=== PATIENT | female | born 1985 | race African-American/Black ===

== ENCOUNTER 2018-10-20 19:50 | Emergency (ER) | payer SELFPAY ==
[2018-10-20] MEDS ORDERED: TETRACAINE HCL 0.5% 2ML OPTH ONE (20:32)
[2018-10-20] MEDS ORDERED: FLUORESCEIN SODIUM 0.6 MG/WRAP ONE (20:32)
--- NOTE | 2018-10-20 20:51 | ER ---
Nurse's Notes [facility] Name: Bailee Berkowitz Age: 33 yrs Sex: Female : 1985 Arrival Date: 10/20/2018 Time: 19:54 Bed 24 Private MD: Tasha Hanks H Diagnosis: Injury of conjunctiva and corneal abrasion without foreign body Presentation: 10/20 20:21 Presenting complaint: Patient states: L eye irritation for past several days. Denies aa1 known injury. Reports she thought it may be her contact lenses and tried wearing her glasses for a few days but symptoms did not improve. Transition of care: patient was not received from another setting of care. Onset of symptoms was October 16, 2018. Risk Assessment: Do you want to hurt yourself or someone else? Patient reports no desire to harm self or others. Initial Sepsis Screen: Does the patient meet any 2 criteria? No. Patient's initial sepsis screen is negative. Does the patient have a suspected source of infection? No. Patient's initial sepsis screen is negative. Care prior to arrival: None. 20:21 Method Of Arrival: Ambulatory aa1 20:21 Acuity: ADAM 4 aa1 Triage Assessment: 20:22 General: Appears in no apparent distress. comfortable, Behavior is calm, cooperative, aa1 appropriate for age. Historical: - Allergies: 20:22 none; aa1 - Home Meds: 20:22 None [Active]; aa1 - PMHx: 20:22 None; aa1 - PSHx: 20:22 Appendectomy; aa1 - Immunization history:: Last tetanus immunization: unknown. - Social history:: Smoking status: Patient/guardian denies using tobacco. - Ebola Screening: : No symptoms or risks identified at this time. Screenin:30 Abuse screen: Denies threats or abuse. Nutritional screening: No deficits noted. la1 Nutritional screening: No deficits noted. Tuberculosis screening: No symptoms or risk factors identified. Fall Risk None identified. Assessment: 20:29 General: Appears in no apparent distress. Behavior is calm, cooperative. Pain: la1 Complains of pain in left eye. Neuro: Level of Consciousness is awake, alert, obeys commands, Oriented to person, place, time, situation. Cardiovascular: Heart tones S1 S2 present Capillary refill < 3 seconds. Respiratory: Airway is patent Respiratory effort is even, unlabored. GI: No signs and/or symptoms were reported involving the gastrointestinal system. : No signs and/or symptoms were reported regarding the genitourinary system. EENT: Sclera/Cornea are reddened in outer aspect of conjuctiva of left eye and inner aspect of conjunctiva of left eye. Derm: No signs and/or symptoms reported regarding the dermatologic system. Vital Signs: 20:22 BP 121 / 75; Pulse 91; Resp 16; Temp 98.9; Pulse Ox 98% on R/A; aa1 Visual Acuity: 20:29 Left Eye Visual acuity 20/30, Pupil size 4 mm, ; Right Eye Visual acuity 20/40, Pupil la1 size 4 mm, ; Both Eyes Visual acuity 20/30; With Lenses; ED Course: 19:54 Patient arrived in ED. es 19:55 Tasha Hanks DO is Private Physician. es 20:22 Triage completed. aa1 20:22 Arm band placed on right wrist. aa1 20:26 Payam Taylor PA is PHCP. jm 20:26 David Jovel MD is Attending Physician. jm 20:29 Shukri Stephen RN is Primary Nurse. la1 20:30 Call light in reach. la1 20:30 Patient did not have IV access during this emergency room visit. la1 20:50 Eddi Roberto MD is Referral Physician. jmm 20:51 Johny Roberto MD is Referral Physician. jm 20:51 Arely Perez MD is Referral Physician. [facility] 20:59 No provider procedures requiring assistance completed. la1 Administered Medications: 20:30 Drug: Tetracaine Drops 0.5 % 1 drops Route: Ophthalmic; Site: left eye; la1 Outcome: 20:51 Discharge ordered by . [facility] 20:59 Discharged to home ambulatory. la1 20:59 Condition: stable 20:59 Discharge instructions given to patient, Instructed on discharge instructions, follow up and referral plans. medication usage, Demonstrated understanding of instructions, follow-up care, medications, Prescriptions given X 1. 21:00 Patient left the ED. la1 Signatures: Anamika Moreno RN RN aa Payam Taylor PA PA [facility] Iqra Barba Attema, Shukri, RN RN la1
--- NOTE | 2018-10-20 20:52 | EDPHYS ---
Physician Documentation [facility] Name: Bailee Berkowitz Age: 33 yrs Sex: Female : 1985 Arrival Date: 10/20/2018 Time: 19:54 Bed 24 Private MD: Tasha Hanks H ED Physician David Jovel HPI: 10/20 20:55 This 33 yrs old Black Female presents to ER via Ambulatory with complaints of Eye jm Problem. 20:55 The patient is experiencing redness. Onset: The symptoms/episode began/occurred jmm gradually, 1 week(s) ago. Duration: the symptoms are intermittent. Aggravated by nothing. Alleviated by nothing. Associated signs and symptoms: Pertinent negatives: fever. This is a 33 year old female with no chronic medical conditions that presents to the ED with left eye redness beginning last week. Symptoms worsened this past Thursday. patient wears contact lenses. denies changes in vision. Historical: - Allergies: 20:22 none; aa1 - Home Meds: 20:22 None [Active]; aa1 - PMHx: 20:22 None; aa1 - PSHx: 20:22 Appendectomy; aa1 - Immunization history:: Last tetanus immunization: unknown. - Social history:: Smoking status: Patient/guardian denies using tobacco. - Ebola Screening: : No symptoms or risks identified at this time. ROS: 20:55 Constitutional: Negative for fever, chills, and weight loss. jmm 20:55 ENT: Negative for injury, pain, and discharge, Neck: Negative for injury, pain, and swelling, Cardiovascular: Negative for chest pain, palpitations, and edema, Respiratory: Negative for shortness of breath, cough, wheezing, and pleuritic chest pain. 20:55 Eyes: Positive for redness. 20:55 All other systems are negative. Exam: 20:55 Visual Acuity: I have reviewed the nursing documentation. jm 20:55 Constitutional: This is a well developed, well nourished patient who is awake, alert, and in no acute distress. Head/Face: atraumatic. 20:55 Chest/axilla: Normal chest wall appearance and motion. Cardiovascular: Regular rate and rhythm. No edema appreciated Respiratory: Normal respirations, no respiratory distress appreciated Skin: General appearance color normal MS/ Extremity: Moves all extremities, no obvious deformities appreciated, no edema noted to the lower extremities Neuro: Awake and alert, normal gait Psych: Behavior is normal, Mood is normal, Patient is cooperative and pleasant 20:55 Eyes: Extraocular movements: intact throughout, Conjunctiva: injected, in the left eye, Corneas: abrasion, on the left, at 7 o'clock, Sclera: abrasion, of the medial aspect of conjunctiva of left eye and lateral aspect of conjunctiva of left eye. Vital Signs: 20:22 BP 121 / 75; Pulse 91; Resp 16; Temp 98.9; Pulse Ox 98% on R/A; aa1 Visual Acuity: 20:29 Left Eye Visual acuity 20/30, Pupil size 4 mm, ; Right Eye Visual acuity 20/40, Pupil la1 size 4 mm, ; Both Eyes Visual acuity 20/30; With Lenses; MDM: 20:30 Patient medically screened. madhav 20:50 Data reviewed: vital signs, nurses notes. Counseling: I had a detailed discussion with [facility] the patient and/or guardian regarding: the historical points, exam findings, and any diagnostic results supporting the discharge/admit diagnosis, the need for outpatient follow up, to return to the emergency department if symptoms worsen or persist or if there are any questions or concerns that arise at home. 20:55 ED course: Patient is advised to discontinue use of contact lenses due to concerns for [facility] pseudomonal infection. Patient advised to follow up with ophthalmology for close evaluation. patient given strict return precautions. patient understood and agrees with the plan of care. . 10/20 20:26 Order name: Visual Acuity; Complete Time: 20:30 [facility] 10/20 20:26 Order name: Eye Tray; Complete Time: 20:30 [facility] 10/20 20:26 Order name: Fluoresene Opth strip; Complete Time: 20:30 [facility] Administered Medications: 20:30 Drug: Tetracaine Drops 0.5 % 1 drops Route: Ophthalmic; Site: left eye; la1 Disposition: 10/21 06:48 Co-signature as Attending Physician, David Jovel MD I agree with the assessment and [facility] plan of care. Disposition: 10/20/18 20:51 Discharged to Home. Impression: Injury of conjunctiva and corneal abrasion without foreign body. - Condition is Stable. - Discharge Instructions: Corneal Abrasion. - Prescriptions for Vigamox 0.5 % Ophthalmic Drops - instill 1 drop by OPHTHALMIC route every 8 hours for 7 days; 5 milliliter. - Medication Reconciliation Form, Thank You Letter, Antibiotic Education, Prescription Opioid Use form. - Follow up: Eddi Roberto MD; When: Tomorrow; Reason: Recheck today's complaints, Continuance of care, Re-evaluation by your physician. Follow up: Johny Roberto MD; When: As needed; Reason: Recheck today's complaints, Continuance of care, Re-evaluation by your physician. Follow up: Arely Perez MD; When: Tomorrow; Reason: Recheck today's complaints, Continuance of care, Re-evaluation by your physician. Signatures: Anamika Moreno RN RN aa1 David Jovel MD MD cha Mickail, Joel, PA PA [facility] Shukri Stephen RN RN la1 Corrections: (The following items were deleted from the chart) 10/20 21:00 20:51 10/20/2018 20:51 Discharged to Home. Impression: Injury of conjunctiva and la1 corneal abrasion without foreign body. Condition is Stable. Forms are Medication Reconciliation Form, Thank You Letter, Antibiotic Education, Prescription Opioid Use. Follow up: Eddi Roberto; When: Tomorrow; Reason: Recheck today's complaints, Continuance of care, Re-evaluation by your physician. Follow up: Johny Roberto; When: As needed; Reason: Recheck today's complaints, Continuance of care, Re-evaluation by your physician. Follow up: Arely Perez; When: Tomorrow; Reason: Recheck today's complaints, Continuance of care, Re-evaluation by your physician. lyric
[2018-10-20] MEDS ORDERED: GENTAMICIN 0.3% OPTH DROP 5ML ONE (21:03)
[2018-10-20 21:30] VITALS: BP 121/75; TEMP 98.9; O2SAT 98
== END 2018-10-20 21:00 | disposition home or self-care (01) ==
LOC: ER 19:50
DX: S05.02XA Injury of conjunctiva and corneal abrasion without foreign body, left eye, initial encounter (principal)
CPT/HCPCS: 99283

== ENCOUNTER 2018-12-06 12:23 | Emergency (ER) | payer SELFPAY ==
[2018-12-06] MEDS ORDERED: ACETAMINOPHEN 500 MG TAB ONE (13:57)
[2018-12-06] MEDS ORDERED: CLINDAMYCIN 900MG/D5W 900 MG/50 ML IVPB IV ONE (14:20)
[2018-12-06] MEDS ORDERED: DEXAMETHASONE 4 MG/ML VIAL ONE ×2 (14:20→14:23)
[2018-12-06] MEDS ORDERED: PEN G BENZ LA 1.2MU/2ML SYRINGE IM ONE (14:22)
[2018-12-06] MEDS ORDERED: NA CHLORIDE 0.9% 1,000 ML ONE (14:22)
--- NOTE | 2018-12-06 14:49 | ER ---
Nurse's Notes [facility] Name: Bailee Berkowitz Age: 33 yrs Sex: Female : 1985 Arrival Date: 12/06/2018 Time: 12:26 Bed 20 Private MD: Tasha Hanks H Diagnosis: Acute tonsillitis;Peritonsillar abscess-early;Fever, unspecified;Streptococcal tonsillitis Presentation: 12/06 13:02 Presenting complaint: Patient states: Sorethroat and swelling per pt, very painful sg reports having tonsils at this time, denies nausea/vomiting, reports having had the symptoms that developed around 1630 yesterday afternoon, no relief from OTC medications for pain and swelling. Transition of care: patient was not received from another setting of care. Onset of symptoms was December 06, 2018. Risk Assessment: Do you want to hurt yourself or someone else? Patient reports no desire to harm self or others. Initial Sepsis Screen: Does the patient meet any 2 criteria? No. Patient's initial sepsis screen is negative. Does the patient have a suspected source of infection? No. Patient's initial sepsis screen is negative. Care prior to arrival: None. 13:02 Method Of Arrival: Ambulatory sg 13:02 Acuity: ADAM 3 ch Triage Assessment: 14:41 General: Appears in no apparent distress. Behavior is calm, cooperative. tw2 VP COMPLIANCE: 13:04 LMP 11/30/2018 sg Historical: - Allergies: 13:05 none; sg - Home Meds: 13:05 None [Active]; sg - PMHx: 13:05 None; sg - PSHx: 13:05 Appendectomy; sg - Immunization history:: Adult Immunizations up to date. - Social history:: Smoking status: Patient/guardian denies using tobacco. - Ebola Screening: : Patient negative for fever greater than or equal to 101.5 degrees Fahrenheit, and additional compatible Ebola Virus Disease symptoms Patient denies exposure to infectious person Patient denies travel to an Ebola-affected area in the 21 days before illness onset No symptoms or risks identified at this time. - Family history:: not pertinent. Screenin:30 Abuse screen: Denies threats or abuse. Denies injuries from another. Nutritional ch screening: No deficits noted. Tuberculosis screening: No symptoms or risk factors identified. Fall Risk None identified. Assessment: 13:30 Pain: Complains of pain in mouth and throat Pain currently is 8 out of 10 on a pain ch scale. Pain began suddenly. Neuro: No deficits noted. Respiratory: Airway is patent Respiratory effort is even, unlabored, Breath sounds are clear bilaterally. GI: No signs and/or symptoms were reported involving the gastrointestinal system. EENT: Oral mucosa is moist. Throat is reddened has patchy exudate has enlarged tonsils bilaterally with gag reflex present. Derm: Skin is pink, warm \T\ dry. 13:44 Reassessment: Patient appears in no apparent distress at this time. Patient and/or ch family updated on plan of care and expected duration. Pain level reassessed. 14:41 Reassessment: Patient appears in no apparent distress at this time. Patient and/or tw2 family updated on plan of care and expected duration. Pain level reassessed. Patient is alert, oriented x 3, equal unlabored respirations, skin warm/dry/pink. 15:14 Reassessment: Patient appears in no apparent distress at this time. Patient and/or tw2 family updated on plan of care and expected duration. Pain level reassessed. Patient is alert, oriented x 3, equal unlabored respirations, skin warm/dry/pink. pt tolerated room temp water at this time. waiting for completion of IV fluids prior to discharge. 15:45 Reassessment: Patient appears in no apparent distress at this time. Patient and/or tw2 family updated on plan of care and expected duration. Pain level reassessed. Patient is alert, oriented x 3, equal unlabored respirations, skin warm/dry/pink. Vital Signs: 13:04 Pulse 104; Resp 18; Temp 99.1; Pulse Ox 100% on R/A; Weight 106.14 kg; Height 5 ft. 2 sg in. (157.48 cm); Pain 10/10; 13:04 BP 151 / 96; sg 13:44 BP 149 / 91; Pulse 122; Resp 22; Temp 101.9; Pulse Ox 99% on R/A; Pain 10/10; ch 14:39 BP 117 / 69; Pulse 101; Resp 19; Temp 99.7(O); Pulse Ox 100% on R/A; tw2 15:44 BP 131 / 76; Pulse 94; Resp 17; Pulse Ox 99% on R/A; tw2 13:04 Body Mass Index 42.80 (106.14 kg, 157.48 cm) ED Course: 12:26 Patient arrived in ED. sb2 12:27 Tasha Hanks DO is Private Physician. sb2 13:03 Triage completed. sg 13:04 Arm band placed on. sg 13:19 Abbie Sosa, RN is Primary Nurse. ch 13:30 Patient has correct armband on for positive identification. Bed in low position. Call light in reach. Side rails up X 1. 13:30 No provider procedures requiring assistance completed. ch 13:36 David Jovel MD is Attending Physician. madhav 13:58 Primary Nurse role handed off by Abbie Sosa RN tw2 13:58 Hue Perkins RN is Primary Nurse. tw2 14:10 Initial lab(s) drawn, by ok, sent to lab. Inserted saline lock: 22 gauge in left ms antecubital area, using aseptic technique. Blood collected. 14:47 Tasha Hanks DO is Referral Physician. madhav 14:47 Meera Peralta MD is Referral Physician. madhav 14:51 Awaiting: completion of IV fluids prior to discharge. tw2 15:45 IV discontinued, intact, bleeding controlled, No redness/swelling at site. Pressure tw2 dressing applied. Administered Medications: 13:45 Drug: Tylenol 1000 mg Route: PO; 15:15 Follow up: Response: No adverse reaction; Temperature is decreased tw2 14:25 Drug: Bicillin L-A 1.2 million units Route: IM; Site: right gluteus; tw2 14:50 Follow up: Response: No adverse reaction tw2 14:32 Drug: NS 0.9% 1000 ml Route: IV; Rate: 1 bolus; Site: left antecubital; tw2 15:44 Follow up: Response: No adverse reaction; IV Status: Completed infusion; IV Intake: tw2 1000ml 14:32 Drug: Decadron - Dexamethasone 10 mg Route: IVP; Site: left antecubital; tw2 15:15 Follow up: Response: No adverse reaction tw2 14:32 Drug: Clindamycin 900 mg Route: IVPB; Infused Over: 30 mins; Site: left antecubital; tw2 14:53 Follow up: Response: No adverse reaction; IV Status: Completed infusion tw2 Intake: 15:44 IV: 1000ml; Total: 1000ml. tw2 Outcome: 14:47 Discharge ordered by . madhav 15:45 Discharged to home ambulatory, with family. tw2 15:45 Condition: stable 15:45 Discharge instructions given to patient, family, Instructed on discharge instructions, follow up and referral plans. medication usage, Demonstrated understanding of instructions, follow-up care, medications, Prescriptions given X 1. 15:45 Patient left the ED. tw2 Signatures: Abbie Sosa, RN LEONARD Harry Zhou RN David Flor MD MD cha Solis, Maria ms Hue Perkins RN RN tw2 Dorothy Newman sb2 Corrections: (The following items were deleted from the chart) 13:46 13:02 Acuity: ADAM 4 [facility]
--- NOTE | 2018-12-06 14:49 | EDPHYS ---
Physician Documentation [facility] Name: Bailee Berkowitz Age: 33 yrs Sex: Female : 1985 Arrival Date: 12/06/2018 Time: 12:26 Bed 20 Private MD: Tasha Hanks H ED Physician David Jovel HPI: 12/06 14:02 This 33 yrs old Black Female presents to ER via Ambulatory with complaints of Sore mahdav Throat - SWELLING. 14:02 The patient presents with sore throat. The patient describes throat pain as burning, madhav constant. Onset: The symptoms/episode began/occurred 1 day(s) ago. Severity of symptoms: At their worst the symptoms were mild, in the emergency department the symptoms are unchanged. Modifying factors: The symptoms are alleviated by nothing, the symptoms are aggravated by swallowing. Associated signs and symptoms: The patient has no apparent associated signs or symptoms. The patient has not experienced similar symptoms in the past. 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 - Social history:: Smoking status: Patient/guardian denies using tobacco. - Ebola Screening: : Patient negative for fever greater than or equal to 101.5 degrees Fahrenheit, and additional compatible Ebola Virus Disease symptoms Patient denies exposure to infectious person Patient denies travel to an Ebola-affected area in the 21 days before illness onset No symptoms or risks identified at this time. - Family history:: not pertinent. ROS: 14:02 Constitutional: Negative for fever, chills, and weight loss, Eyes: Negative for injury, madhav pain, redness, and discharge, Neck: Negative for injury, pain, and swelling, Cardiovascular: Negative for chest pain, palpitations, and edema, Respiratory: Negative for shortness of breath, cough, wheezing, and pleuritic chest pain, Abdomen/GI: Negative for abdominal pain, nausea, vomiting, diarrhea, and constipation, Back: Negative for injury and pain, : Negative for injury, bleeding, discharge, and swelling, MS/Extremity: Negative for injury and deformity, Skin: Negative for injury, rash, and discoloration, Neuro: Negative for headache, weakness, numbness, tingling, and seizure, Psych: Negative for depression, anxiety, suicide ideation, homicidal ideation, and hallucinations, Allergy/Immunology: Negative for hives, rash, and allergies, Endocrine: Negative for neck swelling, polydipsia, polyuria, polyphagia, and marked weight changes, Hematologic/Lymphatic: Negative for swollen nodes, abnormal bleeding, and unusual bruising. 14:02 ENT: Positive for sore throat. Exam: 14:02 Constitutional: This is a well developed, well nourished patient who is awake, alert, madhav and in no acute distress. Head/Face: Normocephalic, atraumatic. Eyes: Pupils equal round and reactive to light, extra-ocular motions intact. Lids and lashes normal. Conjunctiva and sclera are non-icteric and not injected. Cornea within normal limits. Periorbital areas with no swelling, redness, or edema. Neck: Trachea midline, no thyromegaly or masses palpated, and no cervical lymphadenopathy. Supple, full range of motion without nuchal rigidity, or vertebral point tenderness. No Meningismus. Chest/axilla: Normal chest wall appearance and motion. Nontender with no deformity. No lesions are appreciated. Cardiovascular: Regular rate and rhythm with a normal S1 and S2. No gallops, murmurs, or rubs. Normal PMI, no JVD. No pulse deficits. Respiratory: Lungs have equal breath sounds bilaterally, clear to auscultation and percussion. No rales, rhonchi or wheezes noted. No increased work of breathing, no retractions or nasal flaring. Abdomen/GI: Soft, non-tender, with normal bowel sounds. No distension or tympany. No guarding or rebound. No evidence of tenderness throughout. Back: No spinal tenderness. No costovertebral tenderness. Full range of motion. Skin: Warm, dry with normal turgor. Normal color with no rashes, no lesions, and no evidence of cellulitis. MS/ Extremity: Pulses equal, no cyanosis. Neurovascular intact. Full, normal range of motion. Neuro: Awake and alert, GCS 15, oriented to person, place, time, and situation. Cranial nerves II-XII grossly intact. Motor strength 5/5 in all extremities. Sensory grossly intact. Cerebellar exam normal. Normal gait. 14:02 ENT: Posterior pharynx: Tonsils: enlarged on the right, enlarged on the left, bilaterally enlarged, with erythema, with exudate, Uvula: normal, midline, edematous, erythema, swelling, that is mild, erythema, that is mild, that is moderate, exudate, that is mild, right greater than left. Vital Signs: 13:04 Pulse 104; Resp 18; Temp 99.1; Pulse Ox 100% on R/A; Weight 106.14 kg; Height 5 ft. 2 sg in. (157.48 cm); Pain 10/10; 13:04 BP 151 / 96; sg 13:44 BP 149 / 91; Pulse 122; Resp 22; Temp 101.9; Pulse Ox 99% on R/A; Pain 10/10; ch 14:39 BP 117 / 69; Pulse 101; Resp 19; Temp 99.7(O); Pulse Ox 100% on R/A; tw2 15:44 BP 131 / 76; Pulse 94; Resp 17; Pulse Ox 99% on R/A; tw2 13:04 Body Mass Index 42.80 (106.14 kg, 157.48 cm) MDM: 13:36 Patient medically screened. [facility] 14:04 Data reviewed: vital signs, nurses notes, lab test result(s), CBC, electrolytes, [facility] hepatic panel, urinalysis. 12/06 13:07 Order name: Strep; Complete Time: 13:59 12/06 14:02 Order name: CBC with Diff [facility] 12/06 14:02 Order name: Comprehensive Metabolic Panel; Complete Time: 15:01 [facility] 12/06 15:05 Order name: Urine Dipstick--Ancillary (enter results) 12/06 15:05 Order name: Urine --Ancillary (enter results) 12/06 14:02 Order name: Urine Dipstick-Ancillary (obtain specimen); Complete Time: 14:50 [facility] 12/06 14:02 Order name: Urine Test (obtain specimen); Complete Time: 14:50 [facility] 12/06 14:11 Order name: IV Saline Lock; Complete Time: 14:11 ms 12/06 14:50 Order name: PO challenge; Complete Time: 15:15 [facility] Administered Medications: 13:45 Drug: Tylenol 1000 mg Route: PO; ch 15:15 Follow up: Response: No adverse reaction; Temperature is decreased tw2 14:25 Drug: Bicillin L-A 1.2 million units Route: IM; Site: right gluteus; tw2 14:50 Follow up: Response: No adverse reaction tw2 14:32 Drug: NS 0.9% 1000 ml Route: IV; Rate: 1 bolus; Site: left antecubital; tw2 15:44 Follow up: Response: No adverse reaction; IV Status: Completed infusion; IV Intake: tw2 1000ml 14:32 Drug: Decadron - Dexamethasone 10 mg Route: IVP; Site: left antecubital; tw2 15:15 Follow up: Response: No adverse reaction tw2 14:32 Drug: Clindamycin 900 mg Route: IVPB; Infused Over: 30 mins; Site: left antecubital; tw2 14:53 Follow up: Response: No adverse reaction; IV Status: Completed infusion tw2 Disposition: 12/06/18 14:47 Discharged to Home. Impression: Acute tonsillitis, Peritonsillar abscess - early, Fever, unspecified, Streptococcal tonsillitis. - Condition is Stable. - Discharge Instructions: Skin Abscess, Fever, Adult, Peritonsillar Abscess, Pharyngitis, Tonsillitis, Tonsillitis, Qssy-zy-Dcla, Pharyngitis, Fjuj-bj-Ypen, Peritonsillar Abscess, Aspq-wt-Txgf, Fever, Adult, Syjf-xi-Pyym. - Prescriptions for Clindamycin HCl 300 mg Oral Capsule - take 1 capsule by ORAL route every 6 hours for 10 days; 40 capsule. - Medication Reconciliation Form, Thank You Letter, Antibiotic Education, Prescription Opioid Use, Work release form form. - Follow up: Tasha Hanks; When: 2 - 3 days; Reason: Recheck today's complaints, Continuance of care, Re-evaluation by your physician. Follow up: Meera Peralta; When: 2 - 3 days; Reason: Recheck today's complaints, Re-evaluation by your physician. - Problem is new. - Symptoms have improved. Signatures: Dispatcher [employer] Abbie Coy RN RN ch Gay, Steven, RN RN David Jovel MD MD cha Solis, Maria ms Wise, Tara, RN RN tw2 Corrections: (The following items were deleted from the chart) 15:01 14:47 12/06/2018 14:47 Discharged to Home. Impression: Acute tonsillitis; Peritonsillar madhav abscess - early; Fever, unspecified. Condition is Stable. Discharge Instructions: Skin Abscess, Peritonsillar Abscess, Pharyngitis, Tonsillitis, Tonsillitis, Zkzv-cf-Krov, Pharyngitis, Xksi-yo-Gtax, Peritonsillar Abscess, Kijd-hz-Oaav, Fever, Adult, Fever, Adult, Ephc-xj-Wruu. Prescriptions for Clindamycin HCl 300 mg Oral Capsule - take 1 capsule by ORAL route every 6 hours for 10 days; 40 capsule. and Forms are Work release form, Medication Reconciliation Form, Thank You Letter, Antibiotic Education, Prescription Opioid Use. Follow up: Tasha Hanks; When: 2 - 3 days; Reason: Recheck today's complaints, Continuance of care, Re-evaluation by your physician. Follow up: Meera Peralta; When: 2 - 3 days; Reason: Recheck today's complaints, Re-evaluation by your physician. Problem is new. Symptoms have improved. madhav 15:45 15:01 12/06/2018 14:47 Discharged to Home. Impression: Acute tonsillitis; Peritonsillar tw2 abscess - early; Fever, unspecified; Streptococcal tonsillitis. Condition is Stable. Discharge Instructions: Skin Abscess, Peritonsillar Abscess, Pharyngitis, Tonsillitis, Tonsillitis, Jfcg-ym-Vccn, Pharyngitis, Uraa-ig-Bzon, Peritonsillar Abscess, Gxer-zu-Cosj, Fever, Adult, Fever, Adult, Vmia-cd-Ymow. Prescriptions for Clindamycin HCl 300 mg Oral Capsule - take 1 capsule by ORAL route every 6 hours for 10 days; 40 capsule. and Forms are Work release form, Medication Reconciliation Form, Thank You Letter, Antibiotic Education, Prescription Opioid Use. Follow up: Tasha Hanks; When: 2 - 3 days; Reason: Recheck today's complaints, Continuance of care, Re-evaluation by your physician. Follow up: Meera Peralta; When: 2 - 3 days; Reason: Recheck today's complaints, Re-evaluation by your physician. Problem is new. Symptoms have improved. madhav
[2018-12-06 14:56] LABS: ALT/SGPT 19 U/L (12-78); AST/SGOT 13 U/L (15-37); Albumin 3.7 g/dL (3.4-5.0); Alkaline Phosphatase 105 U/L (45-117); BUN Blood Urea Nitrogen 10 mg/dL (7-18); Bicarbonate 26 mmol/L (21-32); Bilirubin Total 0.4 mg/dL (0.2-1.0); Glucose Level 85 mg/dL (74-106); Protein, Total 8.3 g/dL (6.4-8.2); Sodium Level 138 mmol/L (136-145)
[2018-12-06 15:06] LABS: Absolute Lymphocytes (CBC) 1.8 K/uL (0.7-4.9); Absolute Neutrophil 17.1 K/uL (1.8-8.0); Basophils % 0.2 % (0-1.3); Eosinophils % 0.2 % (0-4.4); Hematocrit 37.1 % (36.0-45.0); MPV 8.8 fL (7.6-11.3); Monocytes % 4.9 % (3.3-12.3); RBC Red Blood Cell Count 4.36 M/uL (3.86-4.86)
[2018-12-06 16:43] VITALS: TEMP 99.7
[2018-12-06 16:44] VITALS: BP 131/76; O2SAT 99
[2018-12-06 20:14] LABS: Urine Blood NEGATIVE (NEG); Urine Glucose NEGATIVE (NEG); Urine Protein NEGATIVE (NEG); Urine Specific Gravity 1.025 (1.005-1.030); Urine pH 5.5 (5.0-7.0)
[2018-12-06 22:09] LABS: Blood Morphology Comment NOT SEEN (NOT SEEN); Platelet Estimate ADEQ; Urine White Blood Cell Casts OK
== END 2018-12-06 15:45 | disposition home or self-care (01) ==
LOC: ER 12:23
DX: J03.00 Acute streptococcal tonsillitis, unspecified (principal)
CPT/HCPCS: 36415; 80053; 81003; 81025; 85025; 87081; 96361; 96365; 96372; 96375; 99284; J0561; J7030

== ENCOUNTER 2019-03-10 08:14 | Emergency (ER) | payer SELFPAY ==
--- OUTSIDE RECORDS SUMMARY | 2019-03-10 08:16 | XMS REPORT ---
:1985 Author Organization [employer] Care Team Providers Name Role Phone Joel Garcia Provider Role Unavailable Allergies, Adverse Reactions, Alerts Substance Reaction Event Type N.K.D.A. Info Not Available Non Drug Allergy Problems Problem Type Condition Code Onset Dates Condition Status Assessment Nexplanon insertion Z30.017 Active Problem Encounter for Nexplanon removal Z30.46 Active Assessment Encounter for initial prescription Z30.017 Active of implantable subdermal contraceptive Medications No Known Medications Results Name Result Date Reference Range Unit Abnormality Flag TEST URINE URINALYSIS AUTO W/O SCOPE (64217) ----PROTEIN neg 20181216 ----pH 6.5 20181216 ----NIT neg 20181216 ----ADAMA neg 20181216 ----URO 1.0 20181216 ----SPECIFIC GRAVITY 1.030 20181216 ----BLO TRACE 20181216 ----BILIRUBIN neg 20181216 ----KETONES neg 20181216 ----GLUCOSE neg 20181216 Summary Purpose eClinicalWorks Submission
--- OUTSIDE RECORDS SUMMARY | 2019-03-10 08:17 | XMS REPORT ---
:1985 Author Organization [employer] Care Team Providers Name Role Phone Joel Garcia Provider Role Unavailable Allergies, Adverse Reactions, Alerts Substance Reaction Event Type N.K.D.A. Info Not Available Non Drug Allergy Problems Problem Type Condition Code Onset Dates Condition Status Assessment Morbid (severe) obesity due to E66.01 Active excess calories Assessment Well woman exam with routine Z01.419 Active gynecological exam Assessment Encounter for surveillance of Z30.46 Active Nexplanon subdermal contraceptive Assessment Body mass index (BMI) of 45.0-49.9 Z68.42 Active in adult Problem Encounter for surveillance of Z30.46 Active Nexplanon subdermal contraceptive Problem Well woman exam with routine Z01.419 Active gynecological exam Problem Possible urinary tract infection R39.89 Active Problem Encounter for Nexplanon removal Z30.46 Active Problem Morbid (severe) obesity due to E66.01 Active excess calories Problem Body mass index (BMI) of 45.0-49.9 Z68.42 Active in adult Medications Medication Code Code Instructions Start End Date Status Dosage System Date Nexplanon [facility] 95141491816 68 MG Active as directed Subcutaneous Results Name Result Date Reference Range Unit Abnormality Flag URINALYSIS AUTO W/O SCOPE (97895) ----NIT neg [id number] ----URO 0.2 20190209 ----PROTEIN neg [id number] ----pH 5.0 20190209 ----BLO TRACE [id number] ----GLUCOSE neg [id number] ----ADAMA TRACE [id number] ----BILIRUBIN neg [id number] ----KETONES neg [id number] ----SPECIFIC GRAVITY 1.025 [id number] Summary Purpose eClinicalWorks Submission
--- OUTSIDE RECORDS SUMMARY | 2019-03-10 08:17 | XMS REPORT ---
:1985 Author Organization [employer] Care Team Providers Name Role Phone Joel Garcia Provider Role Unavailable Allergies No Known Allergies Problems Problem Type Condition Code Onset Dates Condition Status Assessment Possible urinary tract infection R39.89 Active Problem Encounter for surveillance of Z30.46 Active Nexplanon subdermal contraceptive Problem Well woman exam with routine Z01.419 Active gynecological exam Problem Possible urinary tract infection R39.89 Active Problem Encounter for Nexplanon removal Z30.46 Active Problem Morbid (severe) obesity due to E66.01 Active excess calories Problem Body mass index (BMI) of 45.0-49.9 Z68.42 Active in adult Medications No Known Medications Results Name Result Date Reference Range Unit Abnormality Flag CULTURE, URINE, ROUTINE ----CULTURE, URINE, ROUTINE SEE NOTE [id number] Summary Purpose eClinicalWorks Submission
--- OUTSIDE RECORDS SUMMARY | 2019-03-10 08:17 | XMS REPORT ---
:1985 Author Organization [employer] Care Team Providers Name Role Phone Joel Garcia Provider Role Unavailable Allergies No Known Allergies Problems Problem Type Condition Code Onset Dates Condition Status Problem Encounter for Nexplanon removal Z30.46 Active Problem Possible urinary tract infection R39.89 Active Medications Medication Code System Code Instructions Start Date End Date Status Dosage Bactrim DS [facility] 30913719603 800-160 MG Orally February 02, Active 1 tablet Twice a day 2018 Results No Known Results Summary Purpose eClinicalWorks Submission
--- NOTE | 2019-03-10 08:27 | EDPHYS ---
Physician Documentation [facility] Name: Bailee Berkowitz Age: 33 yrs Sex: Female : 1985 Arrival Date: 03/10/2019 Time: 08:16 Bed 15 Private MD: ED Physician Papo Brooks HPI: 03/10 08:24 This 33 yrs old Black Female presents to ER via Unassigned with complaints of pm1 Toothache, Facial Swelling. 08:24 The patient presents with pain, swelling. The problem is located in the upper left pm1 third molar. 08:24 Onset: The symptoms/episode began/occurred yesterday. Duration: The symptoms are pm1 continuous, worse. Modifying factors: The symptoms are alleviated by over the counter medications, Tylenol, the symptoms are aggravated by chewing, food. Associated signs and symptoms: Pertinent positives: pain, Facial swelling that has resolved since last night, Pertinent negatives: dysphagia, fever, inability to eat. Severity of symptoms: in the emergency department the symptoms have improved. The patient has experienced similar episodes in the past, a few times. The patient has not recently seen a physician, has an appointment scheduled, with her dentist on Thursday. 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 - Social history:: Smoking status: Patient/guardian denies using tobacco. - Ebola Screening: : Patient negative for fever greater than or equal to 101.5 degrees Fahrenheit, and additional compatible Ebola Virus Disease symptoms. ROS: 08:24 Constitutional: Negative for fever, chills, and weight loss, Eyes: Negative for injury, pm1 pain, redness, and discharge. 08:24 Neck: Negative for injury, pain, and swelling, Cardiovascular: Negative for chest pain, palpitations, and edema, Respiratory: Negative for shortness of breath, cough, wheezing, and pleuritic chest pain, Abdomen/GI: Negative for abdominal pain, nausea, vomiting, diarrhea, and constipation, Back: Negative for injury and pain, MS/Extremity: Negative for injury and deformity, Skin: Negative for injury, rash, and discoloration, Neuro: Negative for headache, weakness, numbness, tingling, and seizure. 08:24 ENT: Positive for dental pain, Negative for ear pain, sore throat, difficulty swallowing, difficulty handling secretions, hoarseness. Exam: 08:24 Constitutional: This is a well developed, well nourished patient who is awake, alert, pm1 and in no acute distress. Head/Face: Normocephalic, atraumatic. Eyes: Pupils equal round and reactive to light, extra-ocular motions intact. Lids and lashes normal. Conjunctiva and sclera are non-icteric and not injected. Cornea within normal limits. Periorbital areas with no swelling, redness, or edema. 08:24 Neck: Trachea midline, no thyromegaly or masses palpated, and no cervical lymphadenopathy. Supple, full range of motion without nuchal rigidity, or vertebral point tenderness. No Meningismus. Chest/axilla: Normal chest wall appearance and motion. Nontender with no deformity. No lesions are appreciated. Respiratory: Lungs have equal breath sounds bilaterally, clear to auscultation and percussion. No rales, rhonchi or wheezes noted. No increased work of breathing, no retractions or nasal flaring. Abdomen/GI: Soft, non-tender, with normal bowel sounds. No distension or tympany. No guarding or rebound. No evidence of tenderness throughout. Back: No spinal tenderness. No costovertebral tenderness. Full range of motion. Skin: Warm, dry with normal turgor. Normal color with no rashes, no lesions, and no evidence of cellulitis. MS/ Extremity: Pulses equal, no cyanosis. Neurovascular intact. Full, normal range of motion. 08:24 ENT: External ear(s): are unremarkable, Ear canal(s): are normal, TM's: are normal, Nose: no acute changes, Mouth: is normal, no abscess, no drooling, (-) trismus no gum abnomalities, no lip abnormalities, no mucosal abnormalities, no tongue abnormalities, Dental exam: abscess, is not appreciated, dental caries, specifically in the upper left third molar, pain, specifically in the upper left third molar (#16). 08:24 Cardiovascular: Rate: normal, Heart sounds: normal. 08:24 Neuro: Orientation: is normal, Motor: is normal, moves all fours, Gait: is steady, at a normal pace, without difficulty. Vital Signs: 08:17 BP 123 / 71; Pulse 78; Resp 17; Temp 98.4(O); Pulse Ox 100% on R/A; Weight 110.22 kg rb1 (R); Height 5 ft. 3 in. (160.02 cm) (R); Pain 10/10; 08:17 Body Mass Index 43.05 (110.22 kg, 160.02 cm) rb1 MDM: 08:25 Counseling: I had a detailed discussion with the patient and/or guardian regarding: the pm1 historical points, exam findings, and any diagnostic results supporting the discharge/admit diagnosis, the need for outpatient follow up, for definitive care, a dentist, to return to the emergency department if symptoms worsen or persist or if there are any questions or concerns that arise at home. 08:26 Patient medically screened. pm1 08:33 Data reviewed: vital signs. Data interpreted: Pulse oximetry: on room air is 100 %. pm1 Interpretation: normal. Administered Medications: 08:34 Drug: Dupo 5 mg-325 mg 1 tabs Route: PO; rb1 08:35 Follow up: Response: Medication administered at discharge.; pt. has had the medication rb1 in the past. Mother will be driving Disposition: 15:26 Co-signature as Attending Physician, Papo Brooks MD I agree with the assessment and kdr plan of care. Disposition: 03/10/19 08:26 Discharged to Home. Impression: Dental pain. - Condition is Stable. - Discharge Instructions: Dental Caries, Adult, Dental Pain, Diet and Dental Disease. - Prescriptions for Amoxicillin 500 mg Oral Capsule - take 1 capsule by ORAL route every 8 hours for 10 days; 30 tablet. Tylenol- Codeine #3 300-30 mg Oral Tablet - take 2 tablets by ORAL route every 6 hours As needed; 20 tablet. - Medication Reconciliation Form, Thank You Letter, Antibiotic Education, Prescription Opioid Use form. - Follow up: Emergency Department; When: As needed; Reason: Worsening of condition. Follow up: Private Physician; When: 5 - 6 days; Reason: Recheck today's complaints, Continuance of care, Re-evaluation by your physician. - Problem is new. - Symptoms have improved. Signatures: Papo Brooks MD MD kdr Barber, Rebecca, RN RN rb1 Diomedes Simpson, BUILDING SPECIALIST BUILDING SPECIALIST pm1 Corrections: (The following items were deleted from the chart) 08:36 08:26 03/10/2019 08:26 Discharged to Home. Impression: Dental pain. Condition is rb1 Stable. Forms are Medication Reconciliation Form, Thank You Letter, Antibiotic Education, Prescription Opioid Use. Follow up: Emergency Department; When: As needed; Reason: Worsening of condition. Follow up: Private Physician; When: 5 - 6 days; Reason: Recheck today's complaints, Continuance of care, Re-evaluation by your physician. Problem is new. Symptoms have improved. pm1
--- NOTE | 2019-03-10 08:27 | ER ---
Nurse's Notes [facility] Name: Bailee Berkowitz Age: 33 yrs Sex: Female : 1985 Arrival Date: 03/10/2019 Time: 08:16 Bed 15 Private MD: Diagnosis: Dental pain Presentation: 03/10 08:17 Presenting complaint: Patient states: c/o left jaw pain 08/11 that started yesterday rb1 due to bad tooth. Transition of care: patient was not received from another setting of care. Onset of symptoms was March 09, 2019. Risk Assessment: Do you want to hurt yourself or someone else? Patient reports no desire to harm self or others. Initial Sepsis Screen: Does the patient meet any 2 criteria? No. Patient's initial sepsis screen is negative. Does the patient have a suspected source of infection? No. Patient's initial sepsis screen is negative. Care prior to arrival: Medication(s) given: Tylenol. 08:17 Method Of Arrival: Ambulatory rb1 08:17 Acuity: ADAM 4 rb1 Triage Assessment: 08:17 General: Appears uncomfortable, obese, Behavior is calm, cooperative, Denies fever. rb1 Pain: Complains of pain in upper left third molar Pain currently is 10 out of 10 on a pain scale. Pain began 1 day ago. EENT: Reports pain in upper left third molar. Neuro: Level of Consciousness is awake, alert, obeys commands, Oriented to person, place, time, situation. Cardiovascular: Capillary refill < 3 seconds is brisk in bilateral fingers. Respiratory: Airway is patent Respiratory effort is even, unlabored, Respiratory pattern is regular, symmetrical. GI: No signs and/or symptoms were reported involving the gastrointestinal system. : No signs and/or symptoms were reported regarding the genitourinary system. Derm: Skin is dry, Skin is normal, Skin temperature is warm. BUSINESS SYSTEMS ARCHITECT: 08:17 LMP 02/14/2019 rb1 Historical: - Allergies: 08:17 none; rb1 - Home Meds: 08:17 None [Active]; rb1 - PMHx: 08:17 None; rb1 - PSHx: 08:17 Appendectomy; rb1 - Immunization history:: Adult Immunizations up to date. - Social history:: Smoking status: Patient/guardian denies using tobacco. - Ebola Screening: : Patient negative for fever greater than or equal to 101.5 degrees Fahrenheit, and additional compatible Ebola Virus Disease symptoms. Screenin:17 Abuse screen: Denies threats or abuse. Nutritional screening: No deficits noted. rb1 Tuberculosis screening: No symptoms or risk factors identified. Fall Risk None identified. Assessment: 08:17 General: See triage assessment. rb1 Vital Signs: 08:17 BP 123 / 71; Pulse 78; Resp 17; Temp 98.4(O); Pulse Ox 100% on R/A; Weight 110.22 kg rb1 (R); Height 5 ft. 3 in. (160.02 cm) (R); Pain 10/10; 08:17 Body Mass Index 43.05 (110.22 kg, 160.02 cm) rb1 ED Course: 08:16 Patient arrived in ED. as 08:17 Arm band placed on right wrist. rb1 08:17 Patient has correct armband on for positive identification. Bed in low position. Call rb1 light in reach. Side rails up X 1. Pulse ox on. NIBP on. 08:18 Diomedes Simpson NP is PHCP. pm1 08:18 Papo Brooks MD is Attending Physician. pm1 08:18 Nani Rosales, LEONARD is Primary Nurse. rb1 08:28 Triage completed. rb1 08:35 No provider procedures requiring assistance completed. Patient did not have IV access rb1 during this emergency room visit. Administered Medications: 08:34 Drug: Corona 5 mg-325 mg 1 tabs Route: PO; rb1 08:35 Follow up: Response: Medication administered at discharge.; pt. has had the medication rb1 in the past. Mother will be driving Intake: Outcome: 08:26 Discharge ordered by . pm1 08:35 Discharged to home ambulatory, with family. rb1 08:35 Condition: stable 08:35 Discharge instructions given to patient, Instructed on discharge instructions, follow up and referral plans. medication usage, Demonstrated understanding of instructions, follow-up care, medications, Prescriptions given X 2. 08:36 Patient left the ED. rb1 Signatures: Linda Kincaid Rebecca, RN RN rb1 Diomedes Simpson NP [employer] pm1
[2019-03-10 08:40] VITALS: BP 123/71; TEMP 98.4; O2SAT 100
[2019-03-10] MEDS ORDERED: HYDROCODONE/APAP 5/325 MG TAB ONE (08:45)
== END 2019-03-10 08:36 | disposition home or self-care (01) ==
LOC: ER 08:14
DX: K08.89 Other specified disorders of teeth and supporting structures (principal)
CPT/HCPCS: 99283